=== PATIENT | female | born 1945 | race Caucasian/White ===

== ENCOUNTER → 2018-04-07 10:28 | Outpatient (CLI) | payer MEDICARE, OTHER ==
[2018-04-09 15:20] LABS: C-TELOPEPTIDE (SERUM) 111 pg/mL (())
== END | disposition home or self-care (01) ==
LOC: D.LAB 10:28
PROVIDERS: Dentist Oral and Maxillofacial Surgery
DX: M81.0 Age-related osteoporosis without current pathological fracture (principal)